=== PATIENT | male | born 1965 | race Caucasian/White ===

== ENCOUNTER 2022-05-16 18:29 | Inpatient (IN) | payer SELFPAY ==
--- NOTE | 2022-05-16 18:35 | W.ED.GENADLT ---
Documented by User: Kaleb Beauchamp MD 05/16/22 18:50 HPI - General Adult General: Chief complaint: Psychiatric Symptoms Stated complaint: SUICIDAL IDEATIONS Time Seen by Provider: 05/16/22 18:34 History of Present Illness: HPI: [57]yo patient w/ hx of depression BIBA for suicidal ideation and plan. Patient was planning to shoot himself decided last-minute to not do so. Patient had a picture of sent to share from this office or investigated the case. On arrival, the patient is AAOx3 and cooperative with my evaluation. No focal complaints of chest pain, shortness of breath, palpitations, N/V, focal GI/ complaints. Currently denies HI. No complaints of hallucinations. Onset: acute Duration: ongoing Location: home Severity: severe Associated symptoms: Deny chest pain, dyspnea, nausea, rash, palpitations or vomiting Review of Systems Const: Denies: fever(s) or chills Eyes: Denies: change in vision ENMT: Denies: mouth pain Card: Denies: chest pain or palpitations Resp: Denies: dyspnea or non-productive cough GI: Denies: abdominal pain, nausea, vomiting or diarrhea : Denies: dysuria Musc: Denies: extremity pain Skin/Breast: Denies: rash or new lesions Neuro: Denies: weakness in extremities Psych: Reports: depression and suicidal ideation Keo/Lymph: Denies: easy bruising PFSH ED PFSH: Medical History (Updated 05/22/22 @ 00:00 by ) Depression Social History (Updated 05/21/22 @ 08:51 by River Petersen LPN) Smoking and tobacco status: current every day smoker smokeless tobacco Smokeless tobacco user: chewing tobacco Alcohol intake: never Physical Exam Const: COMMON NORMALS: alert HENMT: COMMON NORMALS: atraumatic HEAD & SCALP: atraumatic MOUTH: moist mucous membranes not abnormal Eye: COMMON NORMALS: EOMs intact bilaterally and conjunctivae normal CONJUNCTIVA: Yes conjunctivae normal Neck/C-Spine: COMMON NORMALS: full ROM and supple Resp: COMMON NORMALS: normal respiratory effort and clear to auscultation bilaterally AUSCULTATION: clear to auscultation bilaterally Cardio: COMMON NORMALS: regular rate RATE: regular rate GI: COMMON NORMALS: Soft to palpation and non-tender PALPATION: Yes Soft to palpation Extremity: COMMON NORMALS: full ROM Neuro: SENSORIUM/ORIENTATION: Yes alert MOTOR EXAM: No Abnormal motor strength present and Other motor observations present (no focal motor deficits) Psych: COMMON NORMALS: speech normal SPEECH: Yes normal speech MOOD & AFFECT: Yes depressed mood Course Vital Signs: Vital signs: Vital Signs Temperature 98.2 F 05/19/22 14:02 Pulse Rate 78 05/19/22 14:02 Respiratory Rate 18 05/19/22 14:02 Blood Pressure 137/91 05/19/22 14:02 Pulse Oximetry 100 05/19/22 14:02 MDM - General Adult Medical Decision Making [57]yo patient w/ hx of depression presenting for SI with plan. HDS, exam within normal limit Thoughts are linear and organized, and the patient has no AH/VH, or HI. Clinically the patient displays no overt toxidrome; they are well appearing, with low suspicion for toxic ingestion given history and exam. Symptoms unlikely 2/2 anemia, hypothyroidism, infection, or ICH. Workup: CBC, CMP, Lipase, salicylate/tylenol, UDS Lab findings: wnl [7:56pm] On reassessment, labs and workup wnl. Patient is hemodynamically stable with no acute medical complaints. Case discussed with psychiatric provider Dr. Frances at [facility] psych inpatient with recommendation for admission Disposition: Psych Lab Data : 05/16/22 20:12 05/16/22 20:12 Laboratory Results WBC 5.8 10^3/uL (4.0-10.0) 05/16/22 20:12 RBC 4.53 10^6/uL (4.1-5.3) 05/16/22 20:12 Hgb 14.5 g/dL (11.7-16.6) 05/16/22 20:12 Hct 41.4 % (42.0-52.0) L 05/16/22 20:12 MCV 91.4 fl (80-94) 05/16/22 20:12 MCH 32.0 pg (28.0-34.0) 05/16/22 20:12 MCHC 35.0 g/dL (30.0-36.0) 05/16/22 20:12 RDW 13.0 % (12.1-15.1) 05/16/22 20:12 Plt Count 238 10^3/cmm (130-400) 05/16/22 20:12 MPV 8.3 fL (7.4-10.4) 05/16/22 20:12 Neut % (Auto) 47.6 % 05/16/22 20:12 Lymph % (Auto) 41.0 % 05/16/22 20:12 [place] % (Auto) 7.8 % 05/16/22 20:12 Eos % (Auto) 2.4 % 05/16/22 20:12 Baso % (Auto) 1.0 % 05/16/22 20:12 Neut # (Auto) 2.76 10^3/uL (1.8-7.7) 05/16/22 20:12 Lymph # (Auto) 2.4 10^3/uL (0.8-4.8) 05/16/22 20:12 [place] # (Auto) 0.5 10^3/uL (0.2-0.9) 05/16/22 20:12 Eos # (Auto) 0.1 10^3/uL (0.0-0.8) 05/16/22 20:12 Baso # (Auto) 0.1 10^3/uL (0.0-0.1) 05/16/22 20:12 Nucleated RBC % (auto) 0 % 05/16/22 20:12 Nucleated RBCs # 0.0 /100WBC 05/16/22 20:12 Sodium 133 mmol/L (136-145) L 05/16/22 20:12 Potassium 4.0 mmol/L (3.5-5.1) 05/16/22 20:12 Chloride 95 mmol/L (98-107) L 05/16/22 20:12 Carbon Dioxide 21 mmol/L (22-29) L 05/16/22 20:12 Anion Gap 21.0 (5-19) H 05/16/22 20:12 BUN 6 mg/dL (6-20) 05/16/22 20:12 Creatinine 0.7 mg/dL (0.7-1.2) 05/16/22 20:12 GFR Calculation 115.4 mL/min (90-130) 05/16/22 20:12 Glucose 84 mg/dL (65-115) 05/16/22 20:12 Calculated Osmolality 273 mOsm/kg (285-295) L 05/16/22 20:12 Calcium 8.8 mg/dL (8.5-10.5) 05/16/22 20:12 Total Bilirubin 0.3 mg/dL (0.15-1.2) 05/16/22 20:12 AST 44 U/L (0-40) H 05/16/22 20:12 ALT 23 U/L (0-41) 05/16/22 20:12 Alkaline Phosphatase 96 IU/L (40-130) 05/16/22 20:12 Total Protein 7.9 g/dL (6.6-8.7) 05/16/22 20:12 Albumin 4.4 g/dL (3.5-5.2) 05/16/22 20:12 Globulin 3.5 g/dL (1.3-4.6) 05/16/22 20:12 Lipase 31 U/L (13-60) 05/16/22 20:12 TSH 0.82 uIU/mL (0.27-4.20) 05/16/22 20:12 Free T4 1.30 ng/dL (0.82-1.77) 05/16/22 20:12 Salicylates < 0.3 mg/dL (3-10) L 05/16/22 20:12 Urine Opiates Screen Negative ng/mL (Negative) 05/16/22 18:44 Acetaminophen < 5.0 ug/mL (10-30) L 05/16/22 20:12 Ur Barbiturates Screen Negative ng/mL (Negative) 05/16/22 18:44 Ur Phencyclidine Scrn Negative ng/mL (Negative) 05/16/22 18:44 Ur Amphetamines Screen Negative ng/mL (Negative) 05/16/22 18:44 U Benzodiazepines Scrn Negative ng/mL (Negative) 05/16/22 18:44 Urine Cocaine Screen Negative ng/mL (Negative) 05/16/22 18:44 U Marijuana (THC) Screen Negative ng/mL (Negative) 05/16/22 18:44 Coronavirus 229E (PCR) Not detected (NOT DETECT) 05/16/22 22:18 SARS-CoV-2 (PCR) Not detected (NOT DETECT) 05/16/22 22:18 SARS-CoV-2 Ag (Rapid) Cancelled 05/16/22 22:18 Discharge Plan Discharge Patient Disposition: Admitted As Inpatient Admit Provider: Alvarez Frances Clinical Impression: Depression with suicidal ideation Condition: Stable Discharge Diet: Regular Discharge Activity: Resume usual activity Sign Out Sign Out Data: Patient Sign Out occurred on 05/16/22 at 23:34. Patient's care was discussed, and care was transferred from to Blake Marinelli MD. Patient Sign Out occurred on 05/17/22 at 07:58. Patient's care was discussed, and care was transferred from to Vasiliy Bryant DO. Coding Level of Care Code ED Chief Crew Scheduler for Chg Fwd Exam Comprehensive Documented by User: Vasiily Bryant DO 05/17/22 11:55 HPI - General Adult General: Chief complaint: Psychiatric Symptoms Stated complaint: SUICIDAL IDEATIONS Time Seen by Provider: 05/16/22 18:34 PFS ED PFSH: Medical History (Updated 05/22/22 @ 00:00 by ) Depression Social History (Updated 05/21/22 @ 08:51 by River Petersen LPN) Smoking and tobacco status: current every day smoker smokeless tobacco Smokeless tobacco user: chewing tobacco Alcohol intake: never Course Vital Signs: Vital signs: Vital Signs Temperature 98.2 F 05/19/22 14:02 Pulse Rate 78 05/19/22 14:02 Respiratory Rate 18 05/19/22 14:02 Blood Pressure 137/91 05/19/22 14:02 Pulse Oximetry 100 05/19/22 14:02 MDM - General Adult Medical Decision Making [57]yo patient w/ hx of depression presenting for SI with plan. HDS, exam within normal limit Thoughts are linear and organized, and the patient has no AH/VH, or HI. Clinically the patient displays no overt toxidrome; they are well appearing, with low suspicion for toxic ingestion given history and exam. Symptoms unlikely 2/2 anemia, hypothyroidism, infection, or ICH. Workup: CBC, CMP, Lipase, salicylate/tylenol, UDS Lab findings: wnl [7:56pm] On reassessment, labs and workup wnl. Patient is hemodynamically stable with no acute medical complaints. Case discussed with psychiatric provider Dr. Frances at [facility] psych inpatient with recommendation for admission Disposition: Psych Care assumed at change of shift I discussed with Dr. Frances he said to go ahead and admit the patient to [facility] for suicidal ideation orders written. Lab Data : 05/16/22 20:12 05/16/22 20:12 Laboratory Results WBC 5.8 10^3/uL (4.0-10.0) 05/16/22 20:12 RBC 4.53 10^6/uL (4.1-5.3) 05/16/22 20:12 Hgb 14.5 g/dL (11.7-16.6) 05/16/22 20:12 Hct 41.4 % (42.0-52.0) L 05/16/22 20:12 MCV 91.4 fl (80-94) 05/16/22 20:12 MCH 32.0 pg (28.0-34.0) 05/16/22 20:12 MCHC 35.0 g/dL (30.0-36.0) 05/16/22 20:12 RDW 13.0 % (12.1-15.1) 05/16/22 20:12 Plt Count 238 10^3/cmm (130-400) 05/16/22 20:12 MPV 8.3 fL (7.4-10.4) 05/16/22 20:12 Neut % (Auto) 47.6 % 05/16/22 20:12 Lymph % (Auto) 41.0 % 05/16/22 20:12 [place] % (Auto) 7.8 % 05/16/22 20:12 Eos % (Auto) 2.4 % 05/16/22 20:12 Baso % (Auto) 1.0 % 05/16/22 20:12 Neut # (Auto) 2.76 10^3/uL (1.8-7.7) 05/16/22 20:12 Lymph # (Auto) 2.4 10^3/uL (0.8-4.8) 05/16/22 20:12 [place] # (Auto) 0.5 10^3/uL (0.2-0.9) 05/16/22 20:12 Eos # (Auto) 0.1 10^3/uL (0.0-0.8) 05/16/22 20:12 Baso # (Auto) 0.1 10^3/uL (0.0-0.1) 05/16/22 20:12 Nucleated RBC % (auto) 0 % 05/16/22 20:12 Nucleated RBCs # 0.0 /100WBC 05/16/22 20:12 Sodium 133 mmol/L (136-145) L 05/16/22 20:12 Potassium 4.0 mmol/L (3.5-5.1) 05/16/22 20:12 Chloride 95 mmol/L (98-107) L 05/16/22 20:12 Carbon Dioxide 21 mmol/L (22-29) L 05/16/22 20:12 Anion Gap 21.0 (5-19) H 05/16/22 20:12 BUN 6 mg/dL (6-20) 05/16/22 20:12 Creatinine 0.7 mg/dL (0.7-1.2) 05/16/22 20:12 GFR Calculation 115.4 mL/min (90-130) 05/16/22 20:12 Glucose 84 mg/dL (65-115) 05/16/22 20:12 Calculated Osmolality 273 mOsm/kg (285-295) L 05/16/22 20:12 Calcium 8.8 mg/dL (8.5-10.5) 05/16/22 20:12 Total Bilirubin 0.3 mg/dL (0.15-1.2) 05/16/22 20:12 AST 44 U/L (0-40) H 05/16/22 20:12 ALT 23 U/L (0-41) 05/16/22 20:12 Alkaline Phosphatase 96 IU/L (40-130) 05/16/22 20:12 Total Protein 7.9 g/dL (6.6-8.7) 05/16/22 20:12 Albumin 4.4 g/dL (3.5-5.2) 05/16/22 20:12 Globulin 3.5 g/dL (1.3-4.6) 05/16/22 20:12 Lipase 31 U/L (13-60) 05/16/22 20:12 TSH 0.82 uIU/mL (0.27-4.20) 05/16/22 20:12 Free T4 1.30 ng/dL (0.82-1.77) 05/16/22 20:12 Salicylates < 0.3 mg/dL (3-10) L 05/16/22 20:12 Urine Opiates Screen Negative ng/mL (Negative) 05/16/22 18:44 Acetaminophen < 5.0 ug/mL (10-30) L 05/16/22 20:12 Ur Barbiturates Screen Negative ng/mL (Negative) 05/16/22 18:44 Ur Phencyclidine Scrn Negative ng/mL (Negative) 05/16/22 18:44 Ur Amphetamines Screen Negative ng/mL (Negative) 05/16/22 18:44 U Benzodiazepines Scrn Negative ng/mL (Negative) 05/16/22 18:44 Urine Cocaine Screen Negative ng/mL (Negative) 05/16/22 18:44 U Marijuana (THC) Screen Negative ng/mL (Negative) 05/16/22 18:44 Coronavirus 229E (PCR) Not detected (NOT DETECT) 05/16/22 22:18 SARS-CoV-2 (PCR) Not detected (NOT DETECT) 05/16/22 22:18 SARS-CoV-2 Ag (Rapid) Cancelled 05/16/22 22:18 Discharge Plan Discharge Patient Disposition: Admitted As Inpatient Admit Provider: Alvarez Frances Clinical Impression: Depression with suicidal ideation Condition: Stable Discharge Diet: Regular Discharge Activity: Resume usual activity Sign Out Sign Out Data: Patient Sign Out occurred on 05/16/22 at 23:34. Patient's care was discussed, and care was transferred from to Blake Marinelli MD. Patient Sign Out occurred on 05/17/22 at 07:58. Patient's care was discussed, and care was transferred from to Vasiliy Bryant DO. Coding Level of Care Code ED Chief Crew Scheduler for Chg Fwd Exam Comprehensive Documented by User: Blake Marinelli MD 05/29/22 21:26 HPI - General Adult General: Chief complaint: Psychiatric Symptoms Stated complaint: SUICIDAL IDEATIONS Time Seen by Provider: 05/16/22 18:34 [facility] ED PFSH: Medical History (Updated 05/22/22 @ 00:00 by ) Depression Social History (Updated 05/21/22 @ 08:51 by River Petersen LPN) Smoking and tobacco status: current every day smoker smokeless tobacco Smokeless tobacco user: chewing tobacco Alcohol intake: never Course Vital Signs: Vital signs: Vital Signs Temperature 98.2 F 05/19/22 14:02 Pulse Rate 78 05/19/22 14:02 Respiratory Rate 18 05/19/22 14:02 Blood Pressure 137/91 05/19/22 14:02 Pulse Oximetry 100 05/19/22 14:02 MDM - General Adult Medical Decision Making [57]yo patient w/ hx of depression presenting for SI with plan. HDS, exam within normal limit Thoughts are linear and organized, and the patient has no AH/VH, or HI. Clinically the patient displays no overt toxidrome; they are well appearing, with low suspicion for toxic ingestion given history and exam. Symptoms unlikely 2/2 anemia, hypothyroidism, infection, or ICH. Workup: CBC, CMP, Lipase, salicylate/tylenol, UDS Lab findings: wnl [7:56pm] On reassessment, labs and workup wnl. Patient is hemodynamically stable with no acute medical complaints. Case discussed with psychiatric provider Dr. Frances at [facility] psych inpatient with recommendation for admission Disposition: Psych Care handoff received from Dr. Beauchamp pending accepting facility. No acute events during my shift. Discussed with Dr. Bryant at time of shift change in the morning. Blake Marinelli MD Emergency Medicine Care assumed at change of shift I discussed with Dr. Frances he said to go ahead and admit the patient to [facility] for suicidal ideation orders written. Lab Data : 05/16/22 20:12 05/16/22 20:12 Laboratory Results WBC 5.8 10^3/uL (4.0-10.0) 05/16/22 20:12 RBC 4.53 10^6/uL (4.1-5.3) 05/16/22 20:12 Hgb 14.5 g/dL (11.7-16.6) 05/16/22 20:12 Hct 41.4 % (42.0-52.0) L 05/16/22 20:12 MCV 91.4 fl (80-94) 05/16/22 20:12 MCH 32.0 pg (28.0-34.0) 05/16/22 20:12 MCHC 35.0 g/dL (30.0-36.0) 05/16/22 20:12 RDW 13.0 % (12.1-15.1) 05/16/22 20:12 Plt Count 238 10^3/cmm (130-400) 05/16/22 20:12 MPV 8.3 fL (7.4-10.4) 05/16/22 20:12 Neut % (Auto) 47.6 % 05/16/22 20:12 Lymph % (Auto) 41.0 % 05/16/22 20:12 [place] % (Auto) 7.8 % 05/16/22 20:12 Eos % (Auto) 2.4 % 05/16/22 20:12 Baso % (Auto) 1.0 % 05/16/22 20:12 Neut # (Auto) 2.76 10^3/uL (1.8-7.7) 05/16/22 20:12 Lymph # (Auto) 2.4 10^3/uL (0.8-4.8) 05/16/22 20:12 [place] # (Auto) 0.5 10^3/uL (0.2-0.9) 05/16/22 20:12 Eos # (Auto) 0.1 10^3/uL (0.0-0.8) 05/16/22 20:12 Baso # (Auto) 0.1 10^3/uL (0.0-0.1) 05/16/22 20:12 Nucleated RBC % (auto) 0 % 05/16/22: Nucleated RBCs # 0.0 /100WBC 05/16/22 20:12 Sodium 133 mmol/L (136-145) L 05/16/22 20:12 Potassium 4.0 mmol/L (3.5-5.1) 05/16/22 20:12 Chloride 95 mmol/L (98-107) L 06/16/22 20:12 Carbon Dioxide 21 mmol/L (22-29) L 05/16/22 20:12 Anion Gap 21.0 (5-19) H 05/16/22 20:12 BUN 6 mg/dL (6-20) 05/16/22 20:12 Creatinine 0.7 mg/dL (0.7-1.2) 05/16/22 20:12 GFR Calculation 115.4 mL/min (90-130) 05/16/22 20:12 Glucose 84 mg/dL (65-115) 05/16/22 20:12 Calculated Osmolality 273 mOsm/kg (285-295) L 05/16/22 20:12 Calcium 8.8 mg/dL (8.5-10.5) 05/16/22 20:12 Total Bilirubin 0.3 mg/dL (0.15-1.2) 05/16/22 20:12 AST 44 U/L (0-40) H 05/16/22 20:12 ALT 23 U/L (0-41) 05/16/22 20:12 Alkaline Phosphatase 96 IU/L (40-130) 05/16/22 20:12 Total Protein 7.9 g/dL (6.6-8.7) 05/16/22 20:12 Albumin 4.4 g/dL (3.5-5.2) 05/16/22 20:12 Globulin 3.5 g/dL (1.3-4.6) 05/16/22 20:12 Lipase 31 U/L (13-60) 05/16/22 20:12 TSH 0.82 uIU/mL (0.27-4.20) 05/16/22 20:12 Free T4 1.30 ng/dL (0.82-1.77) 05/16/22 20:12 Salicylates < 0.3 mg/dL (3-10) L 05/16/22 20:12 Urine Opiates Screen Negative ng/mL (Negative) 05/16/22 18:44 Acetaminophen < 5.0 ug/mL (10-30) L 05/16/22 20:12 Ur Barbiturates Screen Negative ng/mL (Negative) 05/16/22 18:44 Ur Phencyclidine Scrn Negative ng/mL (Negative) 05/16/22 18:44 Ur Amphetamines Screen Negative ng/mL (Negative) 05/16/22 18:44 U Benzodiazepines Scrn Negative ng/mL (Negative) 05/16/22 18:44 Urine Cocaine Screen Negative ng/mL (Negative) 05/16/22 18:44 U Marijuana (THC) Screen Negative ng/mL (Negative) 05/16/22 18:44 Coronavirus 229E (PCR) Not detected (NOT DETECT) 05/16/22 22:18 SARS-CoV-2 (PCR) Not detected (NOT DETECT) 05/16/22 22:18 SARS-CoV-2 Ag (Rapid) Cancelled 05/16/22 22:18 Discharge Plan Discharge Patient Disposition: Admitted As Inpatient Admit Provider: Alvarez Frances Clinical Impression: Depression with suicidal ideation Condition: Stable Discharge Diet: Regular Discharge Activity: Resume usual activity Sign Out Sign Out Data: Patient Sign Out occurred on 05/16/22 at 23:34. Patient's care was discussed, and care was transferred from to Blake Marinelli MD. Patient Sign Out occurred on 05/17/22 at 07:58. Patient's care was discussed, and care was transferred from to Vasiliy Bryant DO. Coding Level of Care Code ED Chief Crew Scheduler for Carolyn Fwd Exam Comprehensive
--- NOTE | 2022-05-16 19:02 | ECG_ITS ---
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 Measurements Intervals [place] Rate: 95 P: 74 GA: 124 QRS: 80 QRSD: 93 T: 73 QT: 353 QTc: 444 Interpretive Statements SINUS RHYTHM No previous ECG available for comparison Electronically Signed On 05-17-2022 5:50:58 CDT by Yesy Bronson M.D. [email or web address]
[2022-05-16 19:14] VITALS: BP 133/84; PULSE 86; RESP 16; TEMP 36.3; O2SAT 97; BMI 20.2
--- NOTE | 2022-05-16 19:15 | PC.NURSE ---
Patient states that he has thoughts suicidal ideation, but does not intend to act on them. Patient has access to a gun but states he does not intend to act on this.
[2022-05-16 19:26] VITALS: BP 133/84; PULSE 86; RESP 16; TEMP 36.3; O2SAT 97
[2022-05-16 20:16] LABS: Amphetamines Screen Urine Negative (Negative); Barbiturates Screen Urine Negative (Negative); Benzodiazepines Screen Urine Negative (Negative); Cocaine Screen Urine Negative (Negative); Opiate Screen Urine Negative (Negative); PCP Screen Urine Negative (Negative); THC Screen Urine Negative (Negative)
[2022-05-16 20:23] LABS: Basophils # 0.1 10^3/uL (0.0-0.1); Eosinophils # 0.1 10^3/uL (0.0-0.8); Eosinophils % 2.4 %; Hematocrit 41.4 % (42.0-52.0); Hemoglobin 14.5 g/dL (11.7-16.6); Lymphocytes # 2.4 10^3/uL (0.8-4.8); Mean Corpuscular Volume 91.4 fl (80-94); Mean Platelet Volume 8.3 fL (7.4-10.4); Monocytes # 0.5 10^3/uL (0.2-0.9); Monocytes % 7.8 %; Neutrophils # 2.76 10^3/uL (1.8-7.7); Neutrophils % 47.6 %; Nucleated Red Blood Cells % 0 %; Platelet Count 238 10^3/cmm (130-400); Red Blood Count 4.53 10^6/uL (4.1-5.3); White Blood Count 5.8 10^3/uL (4.0-10.0)
[2022-05-16 20:55] LABS: Alanine Aminotransferase 23 U/L (0-41); Albumin Level 4.4 g/dL (3.5-5.2); Alkaline Phosphatase 96 IU/L (40-130); Aspartate Amino Transferase 44 U/L (0-40); Blood Urea Nitrogen 6 mg/dL (6-20); Calcium 8.8 mg/dL (8.5-10.5); Carbon Dioxide 21 mmol/L (22-29); Chloride 95 mmol/L (98-107); Globulin 3.5 g/dL (1.3-4.6); Glomerular Filtration Rate 115.4 mL/min (90-130); Glucose 84 mg/dL (65-115); Lipase 31 U/L (13-60); Osmolality Calculated 273 mOsm/kg (285-295); Sodium 133 mmol/L (136-145); Thyroid Stimulating Hormone 0.82 uIU/mL (0.27-4.20); Total Bilirubin 0.3 mg/dL (0.15-1.2); Total Protein 7.9 g/dL (6.6-8.7)
[2022-05-16 20:56] LABS: Acetaminophen < 5.0 ug/mL (10-30); Salicylate < 0.3 mg/dL (3-10)
[2022-05-16 23:12] VITALS: BP 145/87; PULSE 96; O2SAT 97
[2022-05-17 02:13] LABS: Adenovirus Not Detected (NOT DETECT); Chlamydia Pneumoniae Not Detected (NOT DETECT); Coronavirus 229E,HKU1,NL63,OC4 Not Detected (NOT DETECT); Human Metapneumovirus Not Detected (NOT DETECT); Human Rhinovirus/Enterovirus Not Detected (NOT DETECT); Influenza A Not Detected (NOT DETECT); Influenza A H1 Not Detected (NOT DETECT); Influenza A H1-2009 Not Detected (NOT DETECT); Influenza A H3 Not Detected (NOT DETECT); Influenza B Not Detected (NOT DETECT); Mycoplasma Pneumoniae Not Detected (NOT DETECT); Parainfluenza Virus Type 1 Not Detected (NOT DETECT); Parainfluenza Virus Type 2 Not Detected (NOT DETECT); Parainfluenza Virus Type 3 Not Detected (NOT DETECT); Parainfluenza Virus Type 4 Not Detected (NOT DETECT); Respiratory Syncytial Virus A Not Detected (NOT DETECT); Respiratory Syncytial Virus B Not Detected (NOT DETECT); SARS-COV-2 Not Detected (NOT DETECT)
[2022-05-17 06:15] VITALS: BP 157/94; PULSE 75; RESP 15; TEMP 36.9; O2SAT 99
[2022-05-17 11:52] VITALS: BP 157/88; PULSE 72; RESP 16; O2SAT 96
--- NOTE | 2022-05-17 14:21 | PC.NURSE ---
1415 Report called to [facility]. Patient stable for transfer to floor
[2022-05-17 15:20] VITALS: BP 170/104; PULSE 76; RESP 20; TEMP 36.7; O2SAT 99
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
[2022-05-17 19:58] VITALS: BP 148/86; PULSE 75; RESP 18; O2SAT 99
[2022-05-18 06:00] VITALS: BP 153/77; PULSE 67; RESP 18; O2SAT 99
[2022-05-18] MEDS: nicotine 2 mg Gum BUCCAL ×2 (09:06→14:30)
--- NOTE | 2022-05-18 13:25 | W.PM.NPUH&PS ---
Providers/Chief Complaint Admitting Physician: Alvarez Frances MD Chief Complaint: SUICIDAL IDEATIONS HPI NPU History of Present Illness Marcelino Quan is a 57 year old male who presented to the emergency department with the following report: Chief complaint: Psychiatric Symptoms Stated complaint: SUICIDAL IDEATIONS Time Seen by Provider: 05/16/22 18:34 History of Present Illness: HPI: [57]yo patient w/ hx of depression BIBA for suicidal ideation and plan. Patient was planning to shoot himself decided last-minute to not do so. Patient had a picture of sent to share from this office or investigated the case. On arrival, the patient is AAOx3 and cooperative with my evaluation. No focal complaints of chest pain, shortness of breath, palpitations, N/V, focal GI/ complaints. Currently denies HI. No complaints of hallucinations. Onset: acute Duration: ongoing Location: home Severity: severe Associated symptoms: Deny chest pain, dyspnea, nausea, rash, palpitations or vomiting. He was admitted to the neuropsychiatric unit for definitive treatment of those issues. He denies any known allergies to medications and is not currently taking any medications. He reports he presents to the hospital due to being drunk the other day and doing something dumb. He reports he has never been psychiatrically hospitalized but reports when he lived in [place], he went to addiction classes voluntarily as his ex- he was with at the time wanted him to stop drinking. He denies psychiatric medications in the past. He reports a can of chew every three days, alcohol daily with 6 to 8 beers a day, denies marijuana or any other illicit drug use. He has never been to rehab or formal treatment and denies any drug and alcohol related charges. He reports he presents to the hospital as he was out moving and drinking the other day and reports he kept running over things and later, having been drinking consistently throughout the day, he posted a photo of his gun in his lap with the caption ?this could end it all? which resulted in someone sending the police to his house to check on him. He was handcuffed and brought to the emergency department on a 96 hour hold which he reports was 3 days ago. He denies any suicide attempts or self-injurious behaviors. He endorses that he feels weird that he doesn?t think about his brother who passed every day but denies any issues with nightmares or flashbacks. Psychiatric History: As above. Substance Abuse History: As above Family History: He endorses mental health issues on both sides of the family after two accidental deaths, denies any addiction issues on either side of the family, and denies any suicide attempts or completions. Developmental History: He denies any issues with his or , learned to walk and talk and met his developmental milestones on time, and reports speech therapy for his ?s?s but denies any learning support, emotional support or special education classes. Psychosocial History: He reports his parents were together and remained together. He has 4 additional siblings who are products of the same union and neither of his parents have any other children. He described his childhood as pretty normal and endorses he feels like something happened to him when he was little. He denies any CYS involvement, truancy issues, or other traumatic events in his life. He made it to the but did not get his GED. He endorses being heterosexual with his longest relationship being 13 years. He has been twice and twice, a 38 year old daughter with 3 grandsons, has never been in the and denies a amish belief system. 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 He currently lives in a camping trailer near his brother?s house but reports he is thinking of moving back with his ex- and her daughter. Legal History: Denied. Medical History: Denied. Meds NPU Home Medications Medication Instructions Recorded Confirmed Last Taken Type No Known Home Medications 05/16/22 05/16/22 Unknown History Allergies Allergy/AdvReac Type Severity Reaction Status Date / Time No Known Allergies Allergy Unverified 05/16/22 19:19 PFSH NPU PFSH: Medical History (Updated 05/19/22 @ 06:47 by Alvarez Frances MD) Depression Social History (Updated 05/16/22 @ 18:49 by Kaleb Beauchamp MD) Smoking and tobacco status: never smoked Alcohol intake: never Substance/Drug Use: never Mental Status Exam MSE Comments: This is a slender white male in hospital scrubs with adequate grooming and eye contact. No abnormal movements except for mild psychomotor retardation. Cooperative with exam in no acute distress. Speech was normal rate and volume. Mood described as good, affect is congruent. Thought process, organized. Thought content: patient denies suicidal or homicidal ideation, no delusions reported or noted, and denies any auditory or visual hallucinations. Attention and concentration are intact and memory appeared reliable but none were formally tested. He is alert and oriented three times. Insight and judgment are fair. Impulse control is limited. Vitals/I&O/Wt Last Vital Signs Temp 98.0 F 05/17/22 15:20 Pulse 67 05/18/22 06:00 Resp 18 05/18/22 06:00 BP 153/77 05/18/22 06:00 Pulse Ox 99 05/18/22 06:00 Weight last 48 hrs Weight 62.142 kg Data NPU : 05/16/22 20:12 05/16/22 20:12 A&P Assessment and plan (1) Depression with suicidal ideation: Status: Acute (2) Alcohol use: Status: Acute (3) Alcohol intoxication: Status: Acute Plan This is a 57 year old white male who presents on a 96 hour hold after getting drunk during the day and posting a photo of his gun with a caption that lead people to believe he was suicidal reporting it was a dumb mistake and denying any history or current issue with mental health challenges or suicidal ideation. 1. Continue as needed medications. We will continue to evaluate whether medications are necessary or whether his report of this having drank too much is accurate. 2. Encourage individual, group and milieu therapy 3. Continue q-15 minute check for safety 4. Recommend sober living treatment at the highest level of care to which the patient is willing to commit. Involuntary Hold Information 96 Hour Hold: 96 Hour Involuntary Admission: No Attestations NPU Medical Necessity Statement*: Inpatient hospitalization is medically necessary and the clinically appropriate intervention at this time. We will monitor medications and make changes as indicated. Patient will be in the hospital for over two midnights. Likely length of stay is 2-4 days. 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
[2022-05-18 14:00] VITALS: BP 153/86; PULSE 75; RESP 20; TEMP 36.8; O2SAT 99
[2022-05-18 19:41] VITALS: BP 147/87; PULSE 74; RESP 16; TEMP 36.8; O2SAT 99
[2022-05-19 06:00] VITALS: BP 137/91; PULSE 78; RESP 18; TEMP 36.8; O2SAT 100
[2022-05-19] MEDS: nicotine 2 mg Gum BUCCAL ×3 (06:04→10:34)
--- NOTE | 2022-05-19 13:56 | P.NPUDS_ITS ---
Diagnoses at Discharge Discharge Diagnosis (1) Depression with suicidal ideation: Status: Resolved (2) Alcohol use: Status: Acute (3) Alcohol intoxication: Status: Resolved (4) Depression: Status: Acute (5) Alcohol intoxication: Status: Acute Reason for Visit Reason for Visit: SUICIDAL IDEATIONS Brief History: History of Present Illness Marcelino Quan is a 57 year old male who presented to the emergency department with the following report: Chief complaint: Psychiatric Symptoms Stated complaint: SUICIDAL IDEATIONS Time Seen by Provider: 05/16/22 18:34 History of Present Illness:?? HPI: [57]yo patient w/ hx of depression BIBA for suicidal ideation and plan.? Patient was planning to shoot himself decided last-minute to not do so.? Patient had a picture of sent to share from this office or investigated the case.? On arrival, the patient is AAOx3 and cooperative with my evaluation. No focal complaints of chest pain, shortness of breath, palpitations, N/V, focal GI/ complaints. Currently denies HI. No complaints of hallucinations. Onset: acute Duration: ongoing Location: home Severity: severe Associated symptoms: Deny chest pain, dyspnea, nausea, rash, palpitations or vomiting. He was admitted to the neuropsychiatric unit for definitive treatment of those issues. He denies any known allergies to medications and is not currently taking any medications. He reports he presents to the hospital due to being drunk the other day and doing something dumb. He reports he has never been psychiatrically hospitalized but reports when he lived in [place], he went to addiction classes voluntarily as his ex- he was with at the time wanted him to stop drinking. He denies psychiatric medications in the past. He reports a can of chew every three days, alcohol daily with 6 to 8 beers a day, denies marijuana or any other illicit drug use. He has never been to rehab? or formal treatment and denies any drug and alcohol related charges. He reports he presents to the hospital as he was out moving and drinking the other day and reports he kept running over things and later, having been drinking consistently throughout the day, he posted a photo of his gun in his lap with the caption ?this could end it all? which resulted in someone sending the police to his house to check on him. He was handcuffed and brought to the emergency department on a 96 hour hold which he reports was 3 days ago. He denies any suicide attempts or self- injurious behaviors. He endorses that he feels weird that he doesn?t think about his brother who passed every day but denies any issues with nightmares or flashbacks. Psychiatric History: As above. Substance Abuse History: As above Family History: He endorses mental health issues on both sides of the family after two accidental deaths, denies any addiction issues on either side of the family, and denies any suicide attempts or completions. Developmental History: He denies any issues with his or , learned to walk and talk and met his developmental milestones on time, and reports speech therapy for his ?s?s but denies any learning support, emotional support or special education classes. Psychosocial History: He reports his parents were together and remained together. He has 4 additional siblings who are products of the same union and neither of his parents have any other children. He described his childhood as pretty normal and endorses he feels like something happened to him when he was little. He denies any CYS involvement, truancy issues, or other traumatic events in his life. He made it to the but did not get his GED. He endorses being heterosexual with his longest relationship being 13 years. He has been twice and twice, a 38 year old daughter with 3 grandsons, has never been in the and denies a confucianism belief system. 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 He currently lives in a camping trailer near his brother?s house but reports he is thinking of moving back with his ex- and her daughter. Legal History: Denied. Medical History: Denied. Hospital Course Hospital Course He quickly acclimated to the individual, group and milieu therapies. His take is that his being drunk led to this presentation. He was not interested in medication and felt no need for ongoing interventions, but needing to discontinue or decrease his drinking. He had notable improvement during this stay and was able to contract for safety outside of the hospital prior to dis charge. During the hospitalization, patient had routine laboratory studies which were within normal limits except for few outliers. Additionally there was a general medical evaluation which was also within normal limits and revealed no new acute processes. Discharge Summary: At the time of discharge, he denied psychosis or lethality. Mood and anxiety were well managed. Patient endorsed a plan to avoid all drugs of abuse and follow-up with the aftercare recommendations of the treatment team. Patient was evaluated and deemed to be absent credible lethality, and had achieved the maximum benefit from an inpatient hospitalization, so was discharged. Involuntary Hold Information 96 Hour Hold: 96 Hour Involuntary Admission: No Mental Status Exam MSE Comments: This is a slender white male in hospital scrubs with adequate grooming and eye contact. No abnormal movements except for mild psychomotor retardation. Cooperative with exam in no acute distress. Speech was normal rate and volume. Mood described as good, affect is congruent. Thought process, organized. Thought content: patient denies suicidal or homicidal ideation, no delusions reported or noted, and denies any auditory or visual hallucinations. Attention and concentration are intact and memory appeared reliable but none were formally tested. He is alert and oriented three times. Insight and judgment are fair. Impulse control is limited. Discharge Data Studies Completed and Pending: Laboratory Results WBC 5.8 10^3/uL (4.0- 10.0) 05/16/22 20:12 RBC 4.53 10^6/uL (4.1 -5.3) 05/16/22 20:12 Hgb 14.5 g/dL (11.7-1 6.6) 05/16/22 20:12 Hct 41.4 % (42.0-52.0 ) L 05/16/22 20:12 MCV 91.4 fl (80-94) 05/16/22 20:12 MCH 32.0 pg (28.0-34. 0) 05/16/22 20:12 MCHC 35.0 g/dL (30.0-3 6.0) 05/16/22 20:12 RDW 13.0 % (12.1-15.1 ) 05/16/22 20:12 Plt Count 238 10^3/cmm (130 -400) 05/16/22 20:12 MPV 8.3 fL (7.4-10.4) 05/16/22 20:12 Neut % (Auto) 47.6 % 05/16/22 20:12 Lymph % (Auto) 41.0 % 05/16/22 20:12 [place] % (Auto) 7.8 % 05/16/22 20:12 Eos % (Auto) 2.4 % 05/16/22 20:12 Baso % (Auto) 1.0 % 05/16/22 20:12 Neut # (Auto) 2.76 10^3/uL (1.8 -7.7) 05/16/22 20:12 Lymph # (Auto) 2.4 10^3/uL (0.8- 4.8) 05/16/22 20:12 [place] # (Auto) 0.5 10^3/uL (0.2- 0.9) 05/16/22 20:12 Eos # (Auto) 0.1 10^3/uL (0.0- 0.8) 05/16/22 20:12 Baso # (Auto) 0.1 10^3/uL (0.0- 0.1) 05/16/22 20:12 Nucleated RBC % (a uto) 0 % 05/16/22 20:12 Nucleated RBCs # 0.0 /100WBC 05/16/22 20:12 Sodium 133 mmol/L (136-1 45) L 05/16/22 20:12 Potassium 4.0 mmol/L (3.5-5 .1) 05/16/22 20:12 Chloride 95 mmol/L (98-107 ) L 05/16/22 20:12 Carbon Dioxide 21 mmol/L (22-29) L 05/16/22 20:12 Anion Gap 21.0 (5-19) H 05/16/22 20:12 BUN 6 mg/dL (6-20) 05/16/22 20:12 Creatinine 0.7 mg/dL (0.7-1. 2) 05/16/22 20:12 GFR Calculation 115.4 mL/min (90- 130) 05/16/22 20:12 Glucose 84 mg/dL (65-115) 05/16/22 20:12 Calculated Osmolal ity 273 mOsm/kg (285- 295) L 05/16/22 20:12 Calcium 8.8 mg/dL (8.5-10 .5) 05/16/22 20:12 Total Bilirubin 0.3 mg/dL (0.15-1 .2) 05/16/22 20:12 AST 44 U/L (0-40) H 05/16/22 20:12 ALT 23 U/L (0-41) 05/16/22 20:12 Alkaline Phosphata se 96 IU/L (40-130) 05/16/22 20:12 Total Protein 7.9 g/dL (6.6-8.7 ) 05/16/22 20:12 Albumin 4.4 g/dL (3.5-5.2 ) 05/16/22 20:12 Globulin 3.5 g/dL (1.3-4.6 ) 05/16/22 20:12 Lipase 31 U/L (13-60) 05/16/22 20:12 TSH 0.82 uIU/mL (0.27 -4.20) 05/16/22 20:12 Free T4 1.30 ng/dL (0.82- 1.77) 05/16/22 20:12 Salicylates < 0.3 mg/dL (3-10 ) L 05/16/22 20:12 Urine Opiates Scre en Negative ng/mL (N egative) 05/16/22 18:44 Acetaminophen < 5.0 ug/mL (10-3 0) L 05/16/22 20:12 Ur Barbiturates Sc reen Negative ng/mL (N egative) 05/16/22 18:44 Ur Phencyclidine S crn Negative ng/mL (N egative) 05/16/22 18:44 Ur Amphetamines Sc reen Negative ng/mL (N egative) 05/16/22 18:44 U Benzodiazepines Scrn Negative ng/mL (N egative) 05/16/22 18:44 Urine Cocaine Scre en Negative ng/mL (N egative) 05/16/22 18:44 U Marijuana (THC) Screen Negative ng/mL (N egative) 05/16/22 18:44 Coronavirus 229E ( PCR) Not detected (NO T DETECT) 05/16/22 22:18 SARS-CoV-2 (PCR) Not detected (NO T DETECT) 05/16/22 22:18 SARS-CoV-2 Ag (Rap id) Cancelled 05/16/22 22:18 Vitals: Last Vital Signs Temp 98.2 F 05/19/22 06:00 Pulse 78 05/19/22 06:00 Resp 18 05/19/22 06:00 BP 137/91 05/19/22 06:00 Pulse Ox 100 05/19/22 06:00 Discharge Plan Discharge Patient Disposition: Home Condition: Stable Prescriptions: Continued No Known Home Medications 0RF Discharge Orders: Discharge Order (Routine); Ordered 05/19/22 Ordered By: Alvarez Frances Discharge Diet: Regular Discharge Activity: Resume usual activity Patient Instructions: Alcohol Abuse, Depression (ED), Suicide Prevention (DC), Opioid Safety Discharge Attestations NPU Time Spent in Discharge Care*: less than 30 min Specific Discharge Activities: Specific discharge activities: educating patient, discussing with case manager/social workers/dc planners, documenting/other paperwork and evaluating patient/reviewing data Coding Level of Care Code Acute Chg FW DC note Diagnoses Depression with suicidal ideation F32.A; R45.851 Alcohol use Z72.89 Alcohol intoxication F10.929 Depression F32.A Alcohol intoxication F10.929
[2022-05-19 14:00] VITALS: BP 150/89; PULSE 88; RESP 17; TEMP 36.9; O2SAT 99
[2022-05-19 14:02] VITALS: BP 137/91; PULSE 78; RESP 18; TEMP 36.8; O2SAT 100
--- NOTE | 2022-05-20 08:07 | PC.OT ---
OT EVALUATION ORDERS RECEIVED. PATIENT DISCHARGED BEFORE EVALUATION COULD BE COMPLETED.
== END 2022-05-19 15:22 | disposition home or self-care (01) | DRG 881 ==
LOC: ER 05-17 12:26 → NP 05-17 14:21
PROVIDERS: Emergency Medicine; Admitting Provider Psychiatry & Neurology Psychiatry; Emergency Provider Family Medicine; Visit Provider Psychiatry & Neurology Psychiatry
DX: F32.A Depression, unspecified (principal); R45.851 Suicidal ideations; F10.929 Alcohol use, unspecified with intoxication, unspecified; Z81.8 Family history of other mental and behavioral disorders; Z20.822 Contact with and (suspected) exposure to COVID-19
CPT/HCPCS: 36415; 80053; 80306; 80307; 83690; 84439; 84443; 85025; 87635; 93005; 99285

== ENCOUNTER → 2022-05-21 09:38 | Outpatient (BNVA) | payer SELFPAY | PROVIDERS: Visit Provider Family Medicine | DX: F10.929 Alcohol use, unspecified with intoxication, unspecified (principal); Z12.5 Encounter for screening for malignant neoplasm of prostate; Z13.220 Encounter for screening for lipoid disorders; Z13.6 Encounter for screening for cardiovascular disorders; Z72.89 Other problems related to lifestyle; F32.A Depression, unspecified; Z76.89 Persons encountering health services in other specified circumstances; H92.01 Otalgia, right ear; H92.11 Otorrhea, right ear; H93.8X1 Other specified disorders of right ear; F17.228 Nicotine dependence, chewing tobacco, with other nicotine-induced disorders; L03.115 Cellulitis of right lower limb; L30.1 Dyshidrosis [pompholyx] | CPT/HCPCS: 80053; 80061; 84153 ==